=== PATIENT | female | born 1980 | race Caucasian/White ===

== ENCOUNTER 2019-01-02 11:40 | Outpatient (REF) | payer MEDICAID, SELFPAY ==
[2019-01-02 21:09] LABS: Abs Immature Grans 0.02 k/cumm (0.0-0.09); Absolute Basophil Count 0.03 k/cumm (0.0-0.2); Absolute Eosinophil Count 0.07 k/cumm (0.0-0.7); Absolute Lymphocyte Count 2.93 k/cumm (1.2-3.4); Absolute Monocyte Count 0.71 k/cumm (0.11-0.7); Absolute Neutrophil Count 5.83 k/cumm (1.2-6.7); Basophils % 0.3; Eosinophils % 0.7; HCT 41.5 % (36.0-46.0); HGB 13.7 g/dL (12.0-15.5); Immature Grans % 0.2; Lymphocytes % 30.6; Mean Corpuscular Hemoglobin 30.7 pg (27.0-33.0); Mean Platelet Volume 10.6 fL (8.0-11.0); Monocytes % 7.4; Neutrophils % 60.8; Platelet Count 322 x1000/uL (130-400); RBC 4.46 m/cumm (4.00-5.20); RBC Distribution Width 13.4 % (11.7-14.6); White Blood Cell Count 9.59 k/cumm (4.4-10.8)
[2019-01-02 21:19] LABS: ALT 15 U/L (14-59); AST 18 U/L (15-37); Alkaline Phosphatase 52 U/L (46-116); Anion Gap 10.3 mmol/L (3-11); BUN 16 mg/dL (7-18); Bilirubin, Total 0.3 mg/dL (0.2-1.0); CO2 25.7 mmol/L (21.0-32.0); CREATININE 0.87 mg/dL (0.55-1.02); Calcium 9.2 mg/dL (8.5-10.1); Chloride 105 mmol/L (98-107); Glucose 96 mg/dL (70-100); Lipase 164 U/L (73-393); Potassium 3.9 mmol/L (3.5-5.1); Sodium 141 mmol/L (136-145); Total Protein 7.1 g/dL (6.4-8.2)
== END 2019-01-02 12:00 ==
LOC: NCHCN 11:40
PROVIDERS: PCP Family Medicine; Visit Provider Nurse Practitioner Family
DX: R10.9 Unspecified abdominal pain (principal)
CPT/HCPCS: 80053; 83690; 85025

== ENCOUNTER 2020-02-19 18:17 | Outpatient (REF) | payer MEDICAID, SELFPAY ==
[2020-02-23 07:10] LABS: SARS-CoV-2 RNA Undetected (Undetected); SARS-CoV-2 Specimen Source Nasal
== END 2020-02-19 18:37 ==
LOC: NCHCN 18:17
PROVIDERS: PCP Family Medicine; Visit Provider Family Medicine
DX: Z20.828 Contact with and (suspected) exposure to other viral communicable diseases (principal)
CPT/HCPCS: U0003

== ENCOUNTER 2020-03-01 17:23 | Outpatient (REF) | payer MEDICAID, SELFPAY ==
--- NOTE | 2020-03-01 15:00 | SKI_PTH ---
PATIENT: Deloris Mcgraw LOC: [facility] U#:[id number] AGE/SX: 39/F ROOM: RE03/01/[address]: Marcella Michael : 1980 BED: DIS: 03/01/2020 SPEC #: [id number] RECD: 03/02/20 12:33 STATUS: ELVIRA RELydia #: [id number] ROSE: 03/01/20 15:[address]: Marcella Michael DEPT: Surgical Specimen RECD BY: Day Antonio Tissues: 1 - SKIN BIOPSY(SHAVE/PUNCH) Procedures: SKIN LEVEL 4 Comments: [id number]
== END 2020-03-01 17:43 ==
LOC: NCHCN 17:23
PROVIDERS: PCP Family Medicine; Visit Provider Family Medicine
DX: D22.5 Melanocytic nevi of trunk (principal)
CPT/HCPCS: 88305

== ENCOUNTER 2020-05-25 18:37 | Outpatient (REF) | payer MEDICAID, SELFPAY ==
[2020-05-25 22:22] LABS: Calculated LDL 143 mg/dL (<100); Cholesterol 226 mg/dL (<200); HDL Cholesterol 46 mg/dL (40-60); Triglyceride 186 mg/dL (<150)
== END 2020-05-25 18:38 | disposition home or self-care (01) ==
LOC: NCHCN 18:37
PROVIDERS: PCP Family Medicine; Visit Provider Family Medicine
DX: R03.0 Elevated blood-pressure reading, without diagnosis of hypertension (principal); E66.9 Obesity, unspecified
CPT/HCPCS: 80061

== ENCOUNTER 2022-02-21 14:08 | Outpatient (REF) | payer MEDICAID, SELFPAY ==
--- NOTE | 2022-02-21 13:30 | PAPFT_PTH ---
PATIENT: Deloris Mcgraw LOC: [facility]#:[id number] AGE/SX: 41/F ROOM: RE02/21/[address]: Marcella Michael : 1980 BED: DIS: 02/21/2022 SPEC #: [id number] RECD: 02/21/22 17:59 STATUS: ELVIRA RELydia #: [id number] ROSE: 02/21/22 13:[address]: Marcella Michael DEPT: [facility], [facility] Cytology RECD BY: Day Antonio Tissues: 1 - CX/ENDOCX FOR PAP SMEARS Procedures: PAP THIN PREP/[facility] Screening HPV DNA PROBE Comments: [id number]
== END 2022-02-21 14:09 | disposition home or self-care (01) ==
LOC: NCHCN 14:08
PROVIDERS: PCP Family Medicine; Visit Provider Family Medicine
DX: Z12.4 Encounter for screening for malignant neoplasm of cervix (principal)
CPT/HCPCS: 88142; 87624